=== PATIENT | male | born 1970 | race Caucasian/White ===

== ENCOUNTER 2020-07-21 10:28 | Emergency (ER) | payer OTHER, SELFPAY ==
--- NOTE | 2020-07-21 10:32 | ED.URI ---
HPI - URI/Sore Throat General Chief Complaint: Upper Respiratory Infection Stated Complaint: sore throat Time Seen by Provider: 07/21/20 10:32 Source: patient and RN notes reviewed History of Present Illness HPI Narrative: Patient is a 50-year-old male who presents the urgent care with complaints of right-sided gland swelling and mild sore throat when swallowing. Patient states it started approximately 4 to 5 days ago and is very tender to touch. Patient states that chewing on the right side of the mouth is also painful. Patient states that the lump on the right side is seem to remain the same size. Denies of any fever, nausea, vomiting, other upper respiratory symptoms. Patient has not taken anything [id number] for his pain. States that spicy foods have not caused any increase in pain. No other acute complaints. No acute distress noted. Patient aware of the plan of care. Some parts of this dictation were generated by voice recognition software and may contain typographical and/or grammatical inaccuracies. Related Data Allergies Allergy/AdvReac Type Severity Reaction Status Date / Time No Known Allergies Allergy Unverified 08/23/16 18:19 Review of Systems Review of Systems: Narrative: CONSTITUTIONAL: Denies fever, chills, or sweats. EYES: Denies visual changes, redness, or discharge. ENT: Reports of a swollen right gland and a mild sore throat with swallowing CARDIOVASCULAR: Denies chest pain, palpitations, or edema. RESPIRATORY: Denies cough or dyspnea. GASTROINTESTINAL: Denies abdominal pain, nausea, vomiting, or diarrhea. GENITOURINARY: Denies dysuria or hematuria. SKIN: Denies rash or itching. MUSCULOSKELETAL: Denies back pain, joint pain, or myalgia. NEUROLOGIC: Denies headache, numbness, or weakness. All other systems reviewed are negative, except as documented in HPI. PMFSH Comments At the time of my signature, I reviewed and agree with the nursing past medical, surgical, social, and family history. There is no relevant family history pertinent to the patient complaint. Exam Narrative: Exam Narrative: GENERAL: This is a well-nourished, well-developed patient, in no apparent distress. HEAD: normocephalic, atraumatic. EYES: PERRL. Sclera clear/white. Vision is grossly intact. EARS: External ears normal NOSE: External nose normal with no obvious nasal discharge, nares without redness, no rhinorrhea. THROAT: Mucous membranes moist, posterior pharynx clear. NECK: Neck supple, unilateral right-sided moderate tender submandibular lymphadenopathy/sialadentitis. SKIN: warm, intact with no suspicious lesions or rash, good texture and turgor. NEURO: awake, alert, and oriented to person, place and time. There were no obvious focal neurologic abnormalities. EXTREMITIES: No clubbing, cyanosis, or edema. Course Vital Signs Vital signs: Vital Signs Temperature 97.1 F L 07/21/20 10:34 Pulse Rate 78 07/21/20 10:34 Respiratory Rate 20 07/21/20 10:34 Blood Pressure 156/91 H 07/21/20 10:34 Pulse Oximetry 100 07/21/20 10:34 Temperature 97.1 F L 07/21/20 10:34 Pulse Rate 78 07/21/20 10:34 Respiratory Rate 20 07/21/20 10:34 Blood Pressure 156/91 H 07/21/20 10:34 Pulse Oximetry 100 07/21/20 10:34 Reviewed-patient is informed that they may have pre-hypertension or hypertension based on a blood pressure reading in the department. I recommend the patient call the primary care provider listed on their discharge instructions or a physician of their choice this week to arrange follow-up for further evaluation of possible pre-hypertension or hypertension. MDM - URI/Sore Throat MDM Narrative Medical decision making narrative: Advised the patient to use a warm compress to the area. Complete oral antibiotic regimen as prescribed. Use lemon drops and increase your water intake. If you develop any increase in swelling associated with fever or difficulty swallowing?go to the emergency room. Be sure to eat
[2020-07-21 10:34] VITALS: BP 156/91; PULSE 78; RESP 20; TEMP 36.2; O2SAT 100
== END 2020-07-21 10:53 | disposition home or self-care (01) ==
PROVIDERS: Emergency Provider Nurse Practitioner Family
DX: K11.20 Sialoadenitis, unspecified (principal)
CPT/HCPCS: 99213; G0463

== ENCOUNTER 2021-04-22 10:30 | Emergency (ER) | payer OTHER, SELFPAY ==
--- NOTE | 2021-04-22 10:32 | ED.SKABFB ---
HPI - Skin/Abscess/Foreign Bdy General Chief complaint: Extremity Problem,Nontraumatic Stated complaint: RED SPOT ON R LEG/PAIN Time Seen by Provider: 04/22/21 10:32 Source: patient and RN notes reviewed History of Present Illness HPI narrative: Patient is a 50-year-old male who presents the urgent care with complaints of red warm area to the inside of the right knee. Patient states it started yesterday and has become increased in size and pain. Patient denies of any fever, chills, nausea, vomiting. Denies of any known injury to the area or insect bite. Denies any history of blood clots. Denies of shortness of breath or chest pain. Patient has not done anything for his pain. No other acute complaints. No acute distress noted. Patient aware of the plan of care. Some parts of this dictation were generated by voice recognition software and may contain typographical and/or grammatical inaccuracies. Related Data Allergies Allergy/AdvReac Type Severity Reaction Status Date / Time No Known Allergies Allergy Unverified 04/22/21 10:40 Review of Systems Review of Systems: Narrative: CONSTITUTIONAL: Denies fever, chills, or sweats. EYES: Denies visual changes, redness, or discharge. ENT: Denies rhinorrhea, congestion, sore throat, or otalgia. CARDIOVASCULAR: Denies chest pain, palpitations, or edema. RESPIRATORY: Denies cough or dyspnea. GASTROINTESTINAL: Denies abdominal pain, nausea, vomiting, or diarrhea. GENITOURINARY: Denies dysuria or hematuria. SKIN: Reports of a painful reddened warm area to the inside of the right knee MUSCULOSKELETAL: Denies back pain, joint pain, or myalgia. NEUROLOGIC: Denies headache, numbness, or weakness. All other systems reviewed are negative, except as documented in HPI. PMFSH Comments At the time of my signature, I reviewed and agree with the nursing past medical, surgical, social, and family history. There is no relevant family history pertinent to the patient complaint. Exam Narrative: Exam Narrative: GENERAL: This is a well-nourished, well-developed patient, in no apparent distress. HEAD: normocephalic, atraumatic. EYES: PERRL. Sclera clear/white. Vision is grossly intact. EARS: External ears normal NOSE: External nose normal with no obvious nasal discharge, nares without redness, no rhinorrhea. THROAT: Mucous membranes moist NECK: Neck supple CARDIOVASCULAR: Regular rate and rhythm without murmurs, gallops, or rubs. RESPIRATORY: Clear to auscultation. Breath sounds equal bilaterally. No wheezes, rales, or rhonchi. SKIN: 9 x 6 cm area of erythema, firm, warm to the medial aspect of the right knee. Warm, intact with no suspicious lesions or rash, good texture and turgor. NEURO: awake, alert, and oriented to person, place and time. There were no obvious focal neurologic abnormalities. EXTREMITIES: No clubbing, cyanosis, or edema. No joint tenderness, effusion, or edema noted. No calf tenderness. Negative Homans sign bilaterally. Course Vital Signs Vital signs: Vital Signs Temperature 98.5 F 04/22/21 10:39 Pulse Rate 84 04/22/21 10:39 Respiratory Rate 16 04/22/21 10:39 Blood Pressure 151/92 H 04/22/21 10:39 Pulse Oximetry 100 04/22/21 10:39 Temperature 98.5 F 04/22/21 10:39 Pulse Rate 84 04/22/21 10:39 Respiratory Rate 16 04/22/21 10:39 Blood Pressure 151/92 H 04/22/21 10:39 Pulse Oximetry 100 04/22/21 10:39 Reviewed-patient is informed that they may have pre-hypertension or hypertension based on a blood pressure reading in the department. I recommend the patient call the primary care provider listed on their discharge instructions or a physician of their choice this week to arrange follow-up for further evaluation of possible pre-hypertension or hypertension. MDM - Skin/Abscess/Foreign Bdy MDM Narrative Medical decision making narrative: Advised the patient to complete oral antibiotic regimen as prescribed. Be sure to eat and drink with the medication
[2021-04-22 10:39] VITALS: BP 151/92; PULSE 84; RESP 16; TEMP 36.9; O2SAT 100
== END 2021-04-22 10:49 | disposition home or self-care (01) ==
PROVIDERS: Emergency Provider Nurse Practitioner Family
DX: L03.115 Cellulitis of right lower limb (principal)
CPT/HCPCS: 99213; G0463

== ENCOUNTER 2021-04-24 06:47 | Emergency (ER) | payer OTHER, SELFPAY ==
--- NOTE | ~2021-04-24 | US_ITS ---
EXAMINATION:US venous doppler LE RT INDICATION:Right lower extremity swelling. TECHNIQUE: Multiple grayscale, color flow and Doppler images of the right lower extremity deep venous systems were obtained and reviewed. COMPARISON:No prior studies for comparison. FINDINGS: The common femoral, superficial femoral and popliteal veins demonstrate normal respiratory variation, augmentation and compressibility. Color flow is also seen within the posterior tibial, pe roneal, greater saphenous and profunda veins. IMPRESSION: 1: No lower extremity deep venous thrombosis. Reviewed, dictated and finalized at location A.
--- NOTE | ~2021-04-24 | XR_ITS ---
XR knee RT min 4V 04/24/2021 07:34 INDICATION: Right knee pain and swelling PROCEDURE: 4 views right knee COMPARISON: No prior studies for comparison. FINDINGS: Fracture, dislocation or subluxation is not identified. No significant joint effusion. There is edema of the subcutaneous tissues medial to the knee. No for eign bodies are identified. IMPRESSION: 1: NO ACUTE BONE OR JOINT ABNORMALITY IDENTIFIED. Reviewed, dictated and finalized at location A.
[2021-04-24 07:12] VITALS: BP 146/92; PULSE 89; RESP 18; TEMP 36.1; O2SAT 97
--- NOTE | 2021-04-24 07:43 | ED.EXTPRO ---
HPI - Extremity Problem General Chief complaint: Extremity Problem,Nontraumatic Stated complaint: right leg red, swollen Time Seen by Provider: 04/24/21 07:03 Source: patient, RN notes reviewed and old records reviewed Mode of arrival: ambulatory Limitations: no limitations History of Present Illness HPI Narrative: This is a 50 year old male who presents for evaluation right lower extremity redness and pain. He developed an area of redness to his right medial knee on Tuesday. His redness worsened and became painful so he went to [facility] for [facility]. He was started on doxycycline on Tuesday for cellulitis. He states the area of redness was marked with a pen and the redness has continued to spread down his right leg and up his thigh. He has sharp pain the radiate up his thigh with walking. He is unsure of any increased swelling or fever. He does reports intermittent chills that are followed by episodes of feeling hot. He denies nausea, vomiting, chest pain or shortness of breath. He had a head for 2 days that subsided 2 days ago. Related Data Allergies Allergy/AdvReac Type Severity Reaction Status Date / Time No Known Allergies Allergy Unverified 04/22/21 10:40 Review of Systems Review of Systems: All systems reviewed & are unremarkable except as noted in HPI and below PMFSH Past Medical History Medical History (Updated 04/24/21 @ 10:26 by Sona Baron MD) No significant medical problems Social History Social History (Updated 04/24/21 @ 07:47 by Sona Baron MD) Smoking status: Current some day smoker Tobacco type: cigars Gender identity (if verbalized by the patient): Male Exam Const: General: no acute distress and alert Orientation/consciousness: patient oriented x3 Eyes: EOM: EOMs intact bilaterally Resp: Effort & Inspection: normal respiratory effort and no retractions Auscultation: clear to auscultation bilaterally Cardio: Rate: regular rate Rhythm: regular rhythm Heart sounds: no murmurs Skin: Other: right medial lower extremity with tenderness , erythema from anterior mid hurley to medial knee, no involving joint Neuro: General: patient oriented x3 and moves all extremities Course Reevaluation(s) Reevaluation #1: I Discussed with patient that management next step would be to admit for IV antibiotics. Patient states he is suppose to go on vacation tomorrow so he does not to be admitted. He understands infection could continue to get worse with out continued IV antibiotics Date: 04/24/21 Time: 10:04 Vital Signs Vital signs: Vital Signs Temperature 97 F L 04/24/21 07:12 Pulse Rate 89 04/24/21 07:12 Respiratory Rate 18 04/24/21 07:12 Blood Pressure 146/92 H 04/24/21 07:12 Pulse Oximetry 97 04/24/21 07:12 Temperature 97 F L 04/24/21 07:12 Pulse Rate 79 04/24/21 11:37 Respiratory Rate 18 04/24/21 11:37 Blood Pressure 126/89 04/24/21 11:37 Pulse Oximetry 99 04/24/21 11:37 MDM - Extremity (Nontraumatic) Lab Data Attestation: I reviewed the patient's lab results. Result diagrams: 04/24/21 08:02 04/24/21 08:02 Labs: Lab Results 04/24/21 04/24/21 Range/Units 08:02 08:02 WBC 12.1 H (4.5-10.0) K/mm3 RBC 4.66 (4.6-6.20) M/mm3 Hgb 13.7 L (14.0-18.0) g/dL Hct 41.4 L (42.0-52.0) % MCV 88.8 (80-100) fl MCH 29.4 (26-34) pg MCHC 33.1 (32-36) g/dl RDW 14.1 (11.5-14.5) % Plt Count 170 (150-375) k/mm3 MPV 9.9 (7.4-10.4) fl Immature Gran % (Auto) 0.5 (0-0.5) % Neut % (Auto) 81.4 H (45.5-73.1) % Lymph % (Auto) 9.6 L (18.3-44.2) % [place] % (Auto) 7.3 (2.6-8.5) % Eos % (Auto) 1.0 (0-4.4) % Baso % (Auto) 0.2 (0.2-1.2) % Lymph # (Auto) 1.16 (0.9-3.2) K/mm3 [place] # (Auto) 0.9 H (0.1-0.6) K/mm3 Eos # (Auto) 0.1 (0-0.3) K/mm3 Baso # (Auto) 0.0 (0.0-0.1) K/mm3 Abs Immat Gran (auto) 0.06 H (0.00-0.031) K/mm3 Absolute Doug
[2021-04-24 08:16] LABS: Basophils Percent Auto 0.2 % (0.2-1.2); Eosinophils Absolute Auto 0.1 K/mm3 (0-0.3); Hematocrit 41.4 % (42.0-52.0); Hemoglobin 13.7 g/dL (14.0-18.0); Immature Granulocyte Absolute 0.06 K/mm3 (0.00-0.031); Immature Granulocyte Percent A 0.5 % (0-0.5); Lymphocytes Absolute Auto 1.16 K/mm3 (0.9-3.2); Lymphocytes Percent Auto 9.6 % (18.3-44.2); Mean Corpuscular HGB Conc 33.1 g/dl (32-36); Mean Corpuscular Hemoglobin 29.4 pg (26-34); Mean Corpuscular Volume 88.8 fl (80-100); Mean Platelet Volume 9.9 fl (7.4-10.4); Monocytes Absolute Auto 0.9 K/mm3 (0.1-0.6); Monocytes Percent Auto 7.3 % (2.6-8.5); Neutrophils Absolute Auto 9.9 K/mm3 (1.3-6.7); Neutrophils Percent Auto 81.4 % (45.5-73.1); Platelet Count Result 170 k/mm3 (150-375); Red Blood Count 4.66 M/mm3 (4.6-6.20); Red Cell Distribution Width 14.1 % (11.5-14.5); White Blood Count 12.1 K/mm3 (4.5-10.0)
[2021-04-24 08:26] LABS: Alanine Aminotransferase 26 U/L (4-50); Albumin Level 4.3 g/dL (3.5-5.1); Alkaline Phosphatase 57 U/L (38-126); Anion Gap 10 mmol/L (8-16); Aspartate Amino Transferase 24 U/L (17-59); Bilirubin,Total 0.8 mg/dL (0.2-1.3); Blood Urea Nitrogen 19 mg/dL (9-20); Calcium 9.3 mg/dL (8.4-10.2); Carbon Dioxide 22 mmol/L (22-30); Chloride 103 mmol/L (98-107); Estimated CRCL calculation 94 ml/min; Estimated Glomerular Filt Rate > 60; Glucose 116 mg/dL (65-110); Sodium 135 mmol/L (137-145)
[2021-04-24 08:42] LABS: CRP 15.4 mg/dL (<1.0)
[2021-04-24 10:02] VITALS: BP 130/82; PULSE 84; RESP 16; O2SAT 99
[2021-04-24 11:37] VITALS: BP 126/89; PULSE 79; RESP 18; O2SAT 99
== END 2021-04-24 11:39 | disposition home or self-care (01) ==
PROVIDERS: Emergency Provider General Practice
DX: L03.115 Cellulitis of right lower limb (principal); F17.290 Nicotine dependence, other tobacco product, uncomplicated
CPT/HCPCS: 36415; 73564; 80053; 85025; 86140; 93971; 96365; 96366; 99284; J0690

== ENCOUNTER 2021-06-18 00:24 | Day surgery (SDC) | payer OTHER, SELFPAY ==
[2021-06-04 15:04] VITALS: BMI 40.7
--- NOTE | 2021-06-17 17:47 | PM.HPGS ---
History of Present Illness History of Present Illness Consent: Risks, benefits, and alternatives have been discussed and questions answered. Patient agrees to proceed with procedure. Chief complaint: neoplasm screening Narrative: Bryan Roblero is a 50 year old male referred for colon cancer screening Review of Systems Review of Systems: All systems reviewed & are unremarkable except as noted in HPI and below PMFSH Past Medical History Medical History Family hx of prostate cancer History of shingles two episodes in 1990s Hx of Lyme disease (~2014) Raynauds phenomenon left 2nd finger Shingles Family History Family History Father Malignant neoplasm of prostate Diabetes mellitus Mother Diabetes mellitus Heart disease Cerebrovascular accident A-fib Sibling Diabetes mellitus Grandparent Leukemia Social History Social History Social History: 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 He smokes marijuana daily, denies street drug use. Smoking status: Current every day smoker ( marijuana) Tobacco type: cigars Alcohol intake: current Alcohol use details: twice a week Substance use: never Substance use type: does not use Gender identity (if verbalized by the patient): Male Sexual Orientation (if Verbalized by the Patient): Straight or Heterosexual Agree to blood products: Yes Meds Home Medications and Allergies Home Medications Medication Instructions Recorded Confirmed Type No Home Medications 06/18/21 06/18/21 History Allergies Allergy/AdvReac Type Severity Reaction Status Date / Time No Known Allergies Allergy Verified 06/18/21 08:55 Exam Resp: Auscultation: clear to auscultation bilaterally Cardio: Rate: regular rate Rhythm: regular rhythm GI: GI Palp: Yes Soft to palpation and No Tenderness to palpation present (GI) Assessment and Plan Assessment and plan (1) Colon cancer screening: Code(s): Z12.11 - Encounter for screening for malignant neoplasm of colon Status: Acute Assessment and Plan: Colonoscopy with possible biopsy or polypectomy or cautery or injection of substances.
[2021-06-18 08:42] VITALS: BP 151/91; PULSE 80; RESP 18; TEMP 36.2; O2SAT 98; BMI 40.3
--- NOTE | 2021-06-18 09:06 | P.PNAN_ITS ---
Anes - Initial Pre Proc Eval Procedure: Operation Date: 06/18/21 09:30 Proposed Procedures p Screening Colonoscopy - Robert Meyer MD Date/Time: 06/18/21 09:06 Surgeon: Robert Meyer MD Pre Op Diagnosis: neoplasm screening Patient Data Age: 50 Gender: M Height: 1.85 m Weight: 138.6 kg Last Vital Signs Temp 97.2 F L 06/18/21 08:42 Pulse 80 06/18/21 08:42 Resp 18 06/18/21 08:42 BP 151/91 H 06/18/21 08:42 Pulse Ox 98 06/18/21 08:42 Allergies Allergy/AdvReac Type Severity Reaction Status Date / Time No Known Allergies Allergy Verified 06/18/21 08:55 Home Medications Medication Instructions Recorded Confirmed Type No Home Medications 06/18/21 06/18/21 History Patient hx anesthesia problems: none Family hx anesthesia problems: none Results Review: All pre-operative results and documents have been reviewed as part of the pre-operative evaluation. [facility] Past Medical History Medical History (Updated 06/17/21 @ 17:48 by Robert Meyer MD) Family hx of prostate cancer History of shingles two episodes in 1990s Hx of Lyme disease (~2014) Raynauds phenomenon left 2nd finger Shingles Family History Family History (Updated 05/08/21 @ 17:15 by Vaishali Bailon NP) Father Malignant neoplasm of prostate Diabetes mellitus Mother Diabetes mellitus Heart disease Cerebrovascular accident A-fib Sibling Diabetes mellitus Grandparent Leukemia Social History Social History (Updated 05/08/21 @ 17:04 by Vaishali Bailon NP) Social History: 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 He smokes marijuana daily, denies street drug use. Smoking status: Current every day smoker ( marijuana) Tobacco type: cigars Alcohol intake: current Alcohol use details: twice a week Substance use: never Substance use type: does not use Gender identity (if verbalized by the patient): Male Sexual Orientation (if Verbalized by the Patient): Straight or Heterosexual Agree to blood products: Yes Anes - Eval Final PreProcedure Day of Procedure 06/18/21 09:06 Patient weight: morbidly obese Heart: regular rate and rhythm Lungs: clear to auscultation Airway: Mallampati scale class II Neurological: alert and oriented Last oral intake: >/= 8 hours ASA classification: III Emergent: no Anesthetic plan: proceed Anesthesia type and monitoring: general GIVS and standard monitoring Results Review: All pre-operative results and documents have been reviewed as part of the pre-operative evaluation. Informed Consent: The patient's anesthetic plan and its attendant risks and benefits were discussed with the patient/family/POA. Questions were solicited and answers provided to the satisfaction of the patient/family/POA.
[2021-06-18] MEDS: LACTATED RINGERS 1,000 ML 150 ML IV CONT (09:09)
[2021-06-18 09:30] VITALS: BP 108/60; PULSE 73; RESP 25; O2SAT 97
[2021-06-18 09:40] VITALS: BP 103/58; PULSE 71; RESP 20; O2SAT 97
[2021-06-18 09:50] VITALS: BP 127/78; PULSE 66; RESP 20; O2SAT 99
== END 2021-06-18 10:08 | disposition home or self-care (01) ==
PROVIDERS: PCP Nurse Practitioner Family; Visit Provider Internal Medicine Gastroenterology
PROC: 0DJD8ZZ Inspection of Lower Intestinal Tract, Via Natural or Artificial Opening Endoscopic (ICD-10-PCS; CPT 45378; principal; 2021-06-18 09:30)
DX: Z12.11 Encounter for screening for malignant neoplasm of colon (principal); D12.5 Benign neoplasm of sigmoid colon; I73.00 Raynaud's syndrome without gangrene; Z86.19 Personal history of other infectious and parasitic diseases
CPT/HCPCS: 45385; 88305; J2001; J2704; J7120